=== PATIENT | female | born 1985 | race Caucasian/White ===

== ENCOUNTER 2023-12-01 18:35 | Emergency (ER) | payer BC, SELFPAY ==
--- NOTE | ~2023-12-01 | XR_ITS ---
EXAMINATION: XR finger 1st RT min 2V INDICATION: Right first finger pain TECHNIQUE: Three views of the right first finger are obtained. COMPARISON: None available FINDINGS: Bone alignment is normal. There is no fracture. The joint spaces are normal. There is soft tissue swelling of the first finger. IMPRESSION: 1. No acute osseous abnormality. Reviewed, dictated and finalized at location F.
[2023-12-01 18:43] VITALS: BP 137/93; PULSE 68; RESP 16; TEMP 37.1; O2SAT 99
--- NOTE | 2023-12-01 18:52 | ED.GENADULT ---
HPI - General Adult General Chief complaint: Extremity Injury, Upper Stated complaint: R HAND INJURY Time Seen by Provider: 12/01/23 18:52 Source: patient, RN notes reviewed and old records reviewed Mode of arrival: ambulatory Limitations: no limitations History of Present Illness HPI narrative: 38 year-old female presents [facility] injury to her right which occurred last night playing volleyball with swelling and bruising to the verde side of right thumb. Patient has been applying Ice to her right thumb region and has been taking Ibuprofen. Patient is able to move her thumb but with some discomfort. MD complaint: right thumb injury Onset (ago): day(s) (1) Location: right and upper extremity (right thumb verde region) Severity scale (1-10): 6 Treatments prior to arrival: NSAID and cold therapy Related Data Home Medications Medication Instructions Recorded Confirmed albuterol sulfate 90 mcg/actuation 2 puff inhalation Q4-5H PRN 12/01/23 12/01/23 aerosol inhaler Wheezing alprazolam 0.5 mg tablet 0.5 mg PO BID PRN Anxiety 12/01/23 12/01/23 amlodipine 5 mg-olmesartan 20 mg 1 tablet PO DAILY 12/01/23 12/01/23 tablet bupropion HCl 300 mg 24 hr tablet, 300 mg PO DAILY 12/01/23 12/01/23 extended release buspirone 15 mg tablet 15 mg PO BID 12/01/23 12/01/23 Allergies Allergy/AdvReac Type Severity Reaction Status Date / Time vancomycin Allergy Redness of Verified 12/01/23 18:52 Skin Review of Systems Review of Systems: CONSTITUTIONAL: Denies fever, chills, or sweats. EYES: Denies visual changes, redness, or discharge. ENT: Denies rhinorrhea, congestion, sore throat, or otalgia. CARDIOVASCULAR: Denies chest pain, palpitations, or edema. RESPIRATORY: Denies cough or dyspnea. GASTROINTESTINAL: Denies abdominal pain, nausea, vomiting, or diarrhea. GENITOURINARY: Denies dysuria or hematuria. SKIN: Denies rash or itching. MUSCULOSKELETAL: Denies back pain,positive for pain to the right verde aspect of thumb with bruising noted, joint pain, or myalgia. NEUROLOGIC: Denies headache, numbness, or weakness. PSYCHIATRIC: Denies anxiety or depression. All systems reviewed & are unremarkable except as noted in HPI and below PMFSH Past Medical History Medical History (Updated 12/01/23 @ 19:15 by Jenny Ramirez NP) Anxiety and depression Asthma Hypertension Surgical History Surgical History (Updated 12/01/23 @ 19:12 by Jenny Ramirez NP) Previous section x2 Social History Social History (Updated 12/01/23 @ 19:11 by Jenny Ramirez NP) Smoking status: Never smoker Alcohol intake: current Alcohol use details: social Substance use type: does not use Living arrangements: with family Gender identity (if verbalized by the patient): Female Comments At time of signature, agree with nursing past medical, surgical, social and family history. There is no relevant family history pertinent to the presenting complaint Exam Narrative: GENERAL: Well-appearing, well-nourished, and in no acute distress. HEAD: Normocephalic, atraumatic. EYES: PERRLA and EOMI. ENT: Nares clear, no rhinorrhea or epistaxis. Mucous membranes moist. NECK: Supple.no lymphadenopathy CHEST: Clear to auscultation. No respiratory distress.SAO2 99% on room air HEART: Regular rate and rhythm. No murmur heard. Normal peripheral pulses. ABDOMEN: Soft, nontender, nondistended, normal active bowel sounds. EXTREMITIES: Normal range of motion. No edema.Exception noted to right hand at thumb region verde aspect with swelling and bruising, patient is able to move thumb on own power but with discomfort, strong right radial pulse present, patinet reports no tingling or numbness to right hand SKIN: Warm, dry, no rash. NEURO: No focal deficits. Alert and oriented x3. Course Course Emergency Course: Patient is aware of diagnosis, understands and agrees to treatment plan.? Anticipatory guidance given.? Patient
== END 2023-12-01 19:17 | disposition home or self-care (01) ==
PROVIDERS: Emergency Provider Registered Nurse; PCP Family Medicine
DX: S60.011A Contusion of right thumb without damage to nail, initial encounter (principal); X58.XXXA Exposure to other specified factors, initial encounter; Y93.68 Activity, volleyball (beach) (court); F41.9 Anxiety disorder, unspecified; F32.A Depression, unspecified; J45.909 Unspecified asthma, uncomplicated; I10 Essential (primary) hypertension
CPT/HCPCS: 73140; 99213; G0463